=== PATIENT | male | born 1950 | race Caucasian/White ===

== ENCOUNTER → 2016-03-18 | Outpatient (CLI) | payer OTHER | LOC: FCPNEURO 21:30 | PROVIDERS: ATTEND Psychiatry & Neurology Sleep Medicine | DX: G47.33 Obstructive sleep apnea (adult) (pediatric) (principal) ==

== ENCOUNTER → 2016-08-14 | Outpatient (CLI) | payer OTHER | LOC: FIMAGING 14:00 | PROVIDERS: ATTEND Internal Medicine | DX: N18.2 Chronic kidney disease, stage 2 (mild) (principal) ==

== ENCOUNTER → 2016-08-20 | Outpatient (CLI) | payer OTHER | LOC: FIMAGING 12:30 | PROVIDERS: ATTEND Internal Medicine Cardiovascular Disease | DX: Z09 Encounter for follow-up examination after completed treatment for conditions other than malignant neoplasm (principal) ==

== ENCOUNTER → 2017-06-06 | Outpatient (CLI) | payer OTHER ==
[~2017-06-06] MED LIST: IOPAMIDOL (ISOVUE-370) 150 ML BTL IV ONE
== END ==
LOC: CIMAGING 09:41
PROVIDERS: ATTEND Internal Medicine Cardiovascular Disease
DX: I72.4 Aneurysm of artery of lower extremity (principal); N28.1 Cyst of kidney, acquired; K57.90 Diverticulosis of intestine, part unspecified, without perforation or abscess without bleeding
CPT/HCPCS: 75635; Q9967

== ENCOUNTER 2017-07-05 00:53 | Emergency (ER) | payer OTHER ==
--- NOTE | 2017-07-05 01:05 | EDPHY ---
H & P Stated Complaint: bilat feet swelling Time Seen by Provider: 07/05/17 01:05 HPI/ROS: HPI CHIEF COMPLAINT: Bilateral feet swelling. HISTORY OF PRESENT ILLNESS: This is a 66-year-old male, presents emergency room with bilateral lower extremity swelling. States this been going on since Friday progressively getting worse. Patient denies any chest pain or shortness of breath. He states that he just flew to [place] and back. He states he did extensive walking while there. He has never had significant swelling like this. He has never been on a diuretic. He denies a history of heart failure. Denies a history of renal failure. Denies any chest pain or shortness of breath. Main complaint is bilateral lower extremity swelling. Past Medical History: Hypertension, obstructive sleep apnea Past Surgical History: Lumbar diskectomy, femoral stents, knee replacement Social History: Denies daily use of drugs alcohol tobacco. Family History: Noncontributory ROS REVIEW OF SYSTEMS: A comprehensive 10 point review of systems is otherwise negative aside from elements mentioned in the history of present illness. Exam Constitutional triage nursing summary reviewed, vital signs reviewed, awake/ alert. Eyes normal conjunctivae and sclera, EOMI, PERRLA. HENT normal inspection, atraumatic, moist mucus membranes, no epistaxis, neck supple/ no meningismus, no raccoon eyes. Respiratory clear to auscultation bilaterally, normal breath sounds, no respiratory distress, no wheezing. Cardiovascular rate normal, regular rhythm, no murmur, no edema, distal pulses normal. Gastrointestinal soft, non-tender, no rebound, no guarding, normal bowel sounds, no distension, no pulsatile mass. Genitourinary no CVA tenderness. Musculoskeletal bilateral lower extremity swelling pitting edema up to the knees bilaterally. 2+. No signs of cellulitis. No significant calf pain or calf tenderness. Good distal pulses, good cap refill, warm extremities. no midline vertebral tenderness, full range of motion, no calf swelling, no tenderness of extremities, no meningismus, good pulses, neurovascularly intact. Skin pink, warm, & dry, no rash, skin atraumatic. Neurologic awake, alert and oriented x 3, AAOx3, moves all 4 extremities equally, motor intact, sensory intact, CN II-XII intact, normal cerebellar, normal vision, normal speech. Psychiatric normal mood/affect. Heme/Lymph/Immune no lymphadenopathy. Differential Diagnosis: Includes but is not limited to in a particular order peripheral edema, DVTs, CHF, renal failure Medical Decision Making: Plan for this patient check ultrasound Doppler both lower extremities, chest x-ray, EKG, basic blood work, check kidney function, troponin, BNP. And re-evaluate. Clinically most likely this patient has peripheral edema from extensive walking in [place] and taking flights. Re-evaluation: Ultrasound bilateral lower extremities negative for DVT. EKG interpretation by me on record in [facility] system. Impression time of EKG 1:31 a.m., sinus rhythm rate of 62 Q-waves noted V1 V2. Otherwise no ST elevation no ST depression no significant T-wave abnormalities. No signs of cardiac arrhythmia. Blood work is reviewed. No elevated BNP. Kidney function normal. Doppler ultrasounds of the bilateral lower extremity shows no evidence of DVT. Clinically on exam patient has peripheral edema. I do recommend he keep his legs elevated. Compression stockings. Close follow-up with his primary care doctor. Return precautions discussed with him he understands return emergency room if develops worsening symptoms includes increasing swelling, pain, chest pain, shortness of breath. He has no chest pain or shortness of breath. There is no evidence of heart failure on exam. Chest x-ray reveals no significant pulmonary edema or pleural effusions. Patient has no PND or dyspnea on exertion. Most likely has peripheral edema due to extensive walking in [place] and flights. 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 He understands. Source: Patient - Personal History Current Tetanus/Diphtheria Vaccine: Yes Current Tetanus Diphtheria and Acellular Pertussis (TDAP): Yes - Medical/Surgical History Hx Asthma: No Hx Chronic Respiratory Disease: No Hx Diabetes: No Hx Cardiac Disease: Yes Hx Renal Disease: No Hx Cirrhosis: No Hx Alcoholism: No Hx HIV/AIDS: No Hx Splenectomy or Spleen Trauma: No Other PMH: Lumbar surgery, HTN, detached retina, left knee replacement, femoral stents. - Social History Smoking Status: Never smoked Constitutional: Initial Vital Signs Temperature (C) 36.9 C 07/05/17 00:55 Heart Rate 69 07/05/17 00:55 Respiratory Rate 16 07/05/17 00:55 Blood Pressure 161/80 H 07/05/17 00:55 O2 Sat (%) 96 07/05/17 00:55 O2 Delivery Mode Room Air Allergies/Adverse Reactions: No Known Allergies Allergy (Verified 07/05/17 00:59) Home Medications: Medication Instructions Recorded Aspirin 01/17/16 Blood Pressure Med 01/17/16 Aspirin 07/05/17 Lisinopril 07/05/17 Metoprolol-Hctz 100-50 mg Tab 07/05/17 Medical Decision Making - Data Points Laboratory Results: Laboratory Results 07/05/17 01:35 07/05/17 01:35 07/05/17 07/05/17 07/05/17 01:35 01:35 01:35 WBC 6.34 10^3/uL 10^3/uL (3.80-9.50) RBC 4.54 10^6/uL 10^6/uL (4.40-6.38) Hgb 13.4 g/dL L g/dL (13.7-17.5) Hct 39.8 % L % (40.0-51.0) MCV 87.7 fL fL (81.5-99.8) MCH 29.5 pg pg (27.9-34.1) MCHC 33.7 g/dL g/dL (32.4-36.7) RDW 14.8 % % (11.5-15.2) Plt Count 210 10^3/uL 10^3/uL (150-400) MPV 9.0 fL fL (8.7-11.7) Neut % (Auto) 51.8 % % (39.3-74.2) Lymph % (Auto) 27.8 % % (15.0-45.0) [place] % (Auto) 13.4 % H % (4.5-13.0) Eos % (Auto) 6.3 % % (0.6-7.6) Baso % (Auto) 0.5 % % (0.3-1.7) Nucleat RBC Rel Count 0.0 % % (0.0-0.2) Absolute Neuts (auto) 3.29 10^3/uL 10^3/uL (1.70-6.50) Absolute Lymphs (auto) 1.76 10^3/uL 10^3/uL (1.00-3.00) Absolute Monos (auto) 0.85 10^3/uL H 10^3/uL (0.30-0.80) Absolute Eos (auto) 0.40 10^3/uL 10^3/uL (0.03-0.40) Absolute Basos (auto) 0.03 10^3/uL 10^3/uL (0.02-0.10) Absolute Nucleated RBC 0.00 10^3/uL 10^3/uL (0-0.01) Immature Gran % 0.2 % % (0.0-1.1) Immature Gran # 0.01 10^3/uL 10^3/uL (0.00-0.10) PT 14.1 SEC SEC (12.0-15.0) INR 1.07 (0.83-1.16) APTT 28.2 SEC SEC (23.0-38.0) Sodium 146 mEq/L H mEq/L (135-145) Potassium 4.0 mEq/L mEq/L (3.5-5.2) Chloride 107 mEq/L mEq/L (97-110) Carbon Dioxide 24 mEq/l mEq/l (22-31) Anion Gap 15 mEq/L mEq/L (8-16) BUN 20 mg/dL mg/dL (7-23) Creatinine 1.1 mg/dL mg/dL (0.7-1.3) Estimated GFR > 60 Glucose 115 mg/dL H mg/dL (70-100) Calcium 9.1 mg/dL mg/dL (8.5-10.4) Magnesium 1.8 mg/dL mg/dL (1.6-2.3) Total Bilirubin 0.6 mg/dL mg/dL (0.1-1.4) Conjugated Bilirubin 0.4 mg/dL mg/dL (0.0-0.5) Unconjugated Bilirubin 0.2 mg/dL mg/dL (0.0-1.1) AST 18 IU/L IU/L (17-59) ALT 35 IU/L IU/L (21-72) Alkaline Phosphatase 55 IU/L IU/L (38-126) Creatine Kinase 183 IU/L IU/L (0-224) CK-MB (CK-2) Fraction 3.46 ng/mL ng/mL (0.00-4.55) Troponin I < 0.012 ng/mL ng/mL (0.000-0.034) NT-Pro-B Natriuret Pep 71 pg/mL pg/mL (0-125) Total Protein 6.9 g/dL g/dL (6.3-8.2) Albumin 3.8 g/dL g/dL (3.5-5.0) Departure - Departure Disposition: Home, Routine, Self-Care Clinical Impression: Peripheral edema Condition: Good Instructions: Edema (ED) Additional Instructions: 1. Recommend you keep her legs elevated as much as possible over the next week. 2. Recommend get compression stockings. 3. I would follow up closely with her primary care doctor. 4. Your ultrasound today did not show any clots in her legs. Your kidney function is normal. And there is no evidence of heart failure on her blood work or exam. Referrals: Jose Guerrero MD [Primary Care Provider] - As per Instructions
--- NOTE | 2017-07-05 01:33 | CPEKG ---
Heart Rate: 62 RR Interval: 968 QRSD Interval: 88 QT Interval: 404 QTC Interval: 411 QRS [place]: 33 T Wave [place]: 49 EKG Severity - ABNORMAL ECG - EKG Impression: ACCELERATED JUNCTIONAL ESCAPE RHYTHM Electronically Signed By: Manav Horta 05-Jul-2017 06:44:13
[2017-07-05 01:48] LABS: PLATELET COUNT 210 10^3/uL (150-400)
[2017-07-05 01:55] LABS: INR 1.07 (0.83-1.16); PROTIME(PATIENT) 14.1 SEC (12.0-15.0)
[2017-07-05 02:11] LABS: CREATINE KINASE 183 IU/L (0-224)
[2017-07-05 03:22] VITALS: BP 111/62
== END 2017-07-05 03:21 | disposition home or self-care (01) ==
DX: R60.0 Localized edema (principal); I10 Essential (primary) hypertension; Z79.82 Long term (current) use of aspirin

== ENCOUNTER 2017-08-05 14:03 | Observation (INO) | payer OTHER ==
[2017-08-05] MEDS ORDERED: ERTAPENEM 1 GM VIAL ONE (18:39)
[2017-08-05] MEDS ORDERED: REMIFENTANIL HCL 1 MG VIAL ONE (20:08)
[2017-08-05] MEDS ORDERED: fentaNYL 100 MCG/2 ML INJ ONE (20:08)
[2017-08-05] MEDS ORDERED: PROPOFOL/EMULSION 500 MG/50 ML BOTTLE IV ONE (20:09)
[2017-08-05] MEDS ORDERED: MIDAZOLAM 2 MG/2 ML VIAL ONE (20:10)
[2017-08-05] MEDS ORDERED: SUCCINYLCHOLINE CHLORIDE 200 MG/10 ML SYR IVP ONE (20:14)
[2017-08-05] MEDS ORDERED: LIDOCAINE 2% 5 ML SDV ONE (20:14)
[2017-08-05] MEDS ORDERED: ONDANSETRON 4 MG/2 ML VIAL ONE (20:14)
[2017-08-05] MEDS ORDERED: DEXAMETHASONE 4 MG/ML VIAL ONE (20:14)
[2017-08-05] MEDS ORDERED: ROCURONIUM 50 MG/5 ML VIAL ONE (20:14)
[2017-08-05] MEDS ORDERED: KETOROLAC 30 MG/1 ML SDV ONE (20:14)
[2017-08-05] MEDS ORDERED: BUPIVACAINE/EPI 0.5% 30 ML SDV ONE (20:19)
[2017-08-05] MEDS ORDERED: SUGAMMADEX SODIUM 200 MG/2 ML VIAL IVP ONE (20:57)
[2017-08-05] MEDS ORDERED: ONDANSETRON DISINTEGRATING 4 MG TAB PO PRN (21:00)
[2017-08-05] MEDS ORDERED: traMADol 50 MG TAB PO PRN (21:00)
--- NOTE | 2017-08-05 22:32 | GHP ---
[f rep st] HISTORY AND PHYSICAL CHIEF COMPLAINT: Acute appendicitis. HISTORY OF PRESENT ILLNESS: The patient is a 66-year-old man, who developed abdominal pain approximately 11 p.m. last night. He did not sleep very well. Throughout the day, it became worse. He tried to eat Cheerios with milk around 1 p.m. and started having shaking chills. He then presented to the ER. He had a CT scan, which showed acute appendicitis. PAST MEDICAL HISTORY: Hypertension, also watching an aneurysm in his groin. PAST SURGICAL HISTORY: Stents in his aorta. ALLERGIES: No known drug allergies. 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 FAMILY HISTORY: Noncontributory. REVIEW OF SYSTEMS: A 10-point review of systems negative except per HPI. PHYSICAL EXAM: VITALS: Reviewed. GENERAL: Pleasant, well-nourished, well- groomed man lying on gurney. Family at bedside. HEENT: Normocephalic. No gross hearing deficits. Mucous membranes moist. Pupils equal and round. No scleral icterus. LUNGS: Clear to auscultation bilaterally. No increased work of breathing. CARDIAC: Regular rate. No peripheral edema. ABDOMEN: Bowel sounds present. Soft. He is tender in the right lower quadrant. Negative Rovsing sign. SKIN: Warm and dry. MUSCULOSKELETAL: Normal gait. Normal nails. Slight clubbing of the nails. NEURO: Grossly intact. RESULTS REVIEWED: I reviewed the results in down time. IMPRESSION AND PLAN: Patient with acute appendicitis. I will take him to the operating room for a laparoscopic appendectomy. The risks and benefits, including, but not limited to, stroke, heart attack, , blood clots, infection, bleeding, damage to surrounding structures were discussed. He had his questions answered to his satisfaction, signed the informed consent. He received Invanz in the emergency room. /[id number]/MODL MTDD
--- NOTE | 2017-08-05 22:32 | EDV ---
[f rep st] EMERGENCY DEPARTMENT REPORT CHIEF COMPLAINT: Abdominal pain. HISTORY OF PRESENT ILLNESS: The patient complains of right lower quadrant pain that began at 11 p.m. last night. It continues to hurt and hurts to walk and push on the area. He has had decreased appetite. He had shaking and chills this afternoon. He thought he might be constipated, so he took a laxative and did have a small, but relatively normal bowel movement this afternoon. He has had no nausea or vomiting. He has had no urinary symptoms. He does complain of being slightly short of breath. COMPLETE REVIEW OF SYSTEMS: Otherwise negative. PAST MEDICAL HISTORY: Significant for abdominal aortic aneurysm with iliac stents, brain aneurysm, an untreated iliac artery aneurysm, hypertension, back surgery. SOCIAL HISTORY: Nonsmoker. No alcohol. The patient is . ADULT PHYSICAL EXAM: GENERAL: Alert, pleasant well-developed male. VITAL SIGNS: Temperature 37.9. HEENT: Normal. NECK: Supple. HEART: Regular rate and rhythm without murmur or gallop. LUNGS: Clear. ABDOMEN: Soft. Tenderness at McBurney's point in the right lower quadrant. No masses. No organomegaly. EXTREMITIES: Normal. NEUROPSYCH: Normal. ED COURSE: IV normal saline. CBC shows an 8.7 white blood cell count, hematocrit 41.8. Chemistry is normal, and urinalysis shows 1+ blood. Chest x- ray because of shortness of breath, interpreted by me as normal. CT abdomen and pelvis with IV contrast reviewed by me and discussed with Dr. Morrissey shows appendicitis without evidence for rupture. Reevaluation of the patient, the patient is stable. The patient, his and I discussed imaging study results, treatment plan including recommendation for surgery. They expressed understanding and agreement. I consulted and discussed the case with Dr. Awad for surgery, who will see the patient and will take the patient to the OR. Patient is given IV Invanz in the emergency department. MEDICAL DECISION MAKING: I considered urinary tract infection, pyelonephritis, pneumonia, appendicitis, diverticulitis. CLINICAL IMPRESSION: Acute appendicitis. PLAN: Admission and OR. /[id number]/MODL and [id number]/MODL [facility]
--- NOTE | 2017-08-05 22:52 | GOP ---
[f rep st] OPERATIVE REPORT DATE OF OPERATION: 08/05/2017 SURGEON: Bonita Awad MD ANESTHESIA: General. ANESTHESIOLOGIST: Edward Rick DO PREOPERATIVE DIAGNOSIS: Acute appendicitis. POSTOPERATIVE DIAGNOSIS: Acute appendicitis. PROCEDURE PERFORMED: Laparoscopic appendectomy. FINDINGS: Appendicitis. SPECIMENS: Appendix. ESTIMATED BLOOD LOSS: 10 cc. INDICATIONS: The patient is a 66-year-old man who developed abdominal pain. He had imaging and labs consistent with acute appendicitis. DESCRIPTION OF PROCEDURE: The patient was brought into the operating room, placed supine on the table, and general anesthesia was administered. His abdomen was prepped and draped in the usual sterile fashion. I infiltrated all sites with 0.5% Marcaine prior to making incisions. I made an incision at his umbilicus. I elevated it, I inserted the long Veress needle, and it passed the hanging drop test. His abdomen insufflated easily to a pressure of 15 mmHg. I placed a 5 mm trocar with a camera at this site. There were no injuries from Veress needle placement. Under direct vision, I placed a 5 mm suprapubic trocar and a 10 mm trocar in the left lower quadrant. I elevated his appendix. I divided the mesoappendix with a LigaSure, transected the base with an Endo ELVIRA 45 white load. The tip of the appendix was very inflamed. The base was soft. I placed it in an EndoCatch bag and retrieved it via the 10 mm trocar. Hemostasis was achieved. I removed the trocars under direct vision, allowed the abdomen to desufflate. I closed the fascia with 0 Vicryl, I closed skin with 4-0 Monocryl. Dermabond applied. He was awakened in the operating room, extubated, and transferred to PACU in stable condition. /[id number]/MODL MTDD
[2017-08-05] MEDS ORDERED: KETOROLAC 15 MG/1 ML SDV ONE (23:48)
[2017-08-05] MEDS ORDERED: ACETAMINOPHEN 325 MG TAB ONE (23:49)
[2017-08-06] MEDS: ACETAMINOPHEN 325 MG TAB PO SCH ×2 (05:45→09:25)
[2017-08-06] MEDS: KETOROLAC 15 MG/1 ML SDV IVP SCH ×2 (05:45→09:29)
--- NOTE | 2017-08-06 11:02 | CPEKG ---
Heart Rate: 46 RR Interval: 1304 QRSD Interval: 96 QT Interval: 448 QTC Interval: 392 QRS [place]: 23 T Wave [place]: 46 EKG Severity - ABNORMAL ECG - EKG Impression: SINUS RHYTHM WITH FIRST DEGREE AVB Electronically Signed By: Thong Max 06-Aug-2017 11:43:29
--- NOTE | 2017-08-06 11:07 | ASMTCMCOM ---
CM Note CM Note Notes: Patient admitted with acute appendicitis. He is POD #1 laparoscopic appy. 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 I do not anticipate any discharge needs. Case Management available if needs arise. Date Signed: 08/06/2017 11:06 AM Electronically Signed By:Heidi Flynn RN
[2017-08-06 11:17] VITALS: BP 111/62
--- NOTE | 2017-08-06 11:19 | SOAPPROG ---
SOAP Progress Note Assessment/Plan: Assessment: POD#1 s/p laparoscopic appendectomy for acute appendicitis Neuro: up and walking to bathroom, pain meds if needed Respiratory: On 2 L of oxygen, wean oxygen Cardio: Bradycardic, rate of 38 last night, appreciate cardiology consult DVT prophylaxis: SCD's Dispo: Awaiting cardiology consult and O2 check on room air before discharge S: no pain, feels good, no nausea, vomiting, able to keep down food O: laying in bed CTAB Bradycardic at 45 bpm, no murmurs heard 97% oxygen sat on 2L NC Abdomen: soft, nontender, BS present, incisions dry, clean, and intact Extremities: no swelling, pulses intact 08/06/17 11:18 Objective: Vital Signs Temp Pulse Resp BP Pulse Ox 36.6 C 44 L 14 111/62 94 08/06/17 11:16 08/06/17 11:16 08/06/17 11:16 08/06/17 11:16 08/06/17 11:16 08/05/17 08/06/17 08/07/17 05:59 05:59 05:59 Intake Total 400 Balance 400 ICD10 Worksheet Patient Problems: Problems Problem Status Onset Acute appendicitis Acute - ICD10 Problem Qualifiers (1) Acute appendicitis
--- NOTE | 2017-08-06 11:59 | GCON ---
[f rep st] CONSULTATION CARDIOLOGY CONSULTATION DATE OF CONSULTATION: 08/06/2017 REFERRING PHYSICIAN: Dr. Awad PRIMARY COMMUNITY RELATIONS SPECIALIST: Corey Barr MD. CHIEF COMPLAINT: Bradycardia. HISTORY OF PRESENT ILLNESS: We are asked by Dr. Awad to visit with the patient. The patient is a garcía johnson 66-year-old male with a history of hypertension, treated sleep apnea, and infrarenal abdomina l aortic aneurysm, for which he had endovascular repair. He has residual left common femoral arteria l aneurysm which has been stable on serial imaging studies. He presented to the emergency department yesterday evening with abdominal pain and anorexia. He was found to have acute appendicitis and was taken urgently to the operating room by Dr. Awad. He had a n uncomplicated appendectomy. Overnight and early this morning, nursing staff reported heart rates i n the 30s to 40s. The patient was paced on telemetry. Upon my evaluation, he reports feeling quite well. He has actually eaten today. He is passing gas. He has minimal pain related to his surgery. He denies angina, dyspnea. No presyncope. No syncope. I have reviewed his [facility] record. He was seen by Dr. Barr in May 2017. At that time, his amlodipine had been discontinued due to lower extremity edema, and his lisinopril had been increased. He had been taking metoprolol 25 mg once daily. His last dose of metoprolol was at 8 a.m. on August 05. He also recently had an ambulatory monitor through our office, which shows sinus rhythm with a n average heart of 58 beats per minute, grecia of 39 and max of 118. Less than 1% PVC burden. No sym ptoms during that period. REVIEW OF SYSTEMS: A full 10-point review of systems was performed and is otherwise negative except that which is outlined in the History of Present Illness. Telemetry: Sinus rhythm and sinus bradycardia in the 50s. ALLERGIES: Amlodipine causes swelling. PAST MEDICAL HISTORY: 1. Hypertension. 2. Infrarenal abdominal aortic aneurysm, treated with endovascular repair with residual and stable l eft common femoral artery aneurysm distally. 3. Sleep apnea, treated with CPAP. 4. Small cerebral aneurysm that has not been intervened upon and is followed by Dr. Mc [facility]. 5. Now status post appendectomy. OUTPATIENT MEDICATIONS: Include lisinopril 10 mg once daily, metoprolol succinate 25 mg once daily, and aspirin 81 mg daily. SOCIAL HISTORY: The patient is , and his is at bedside. 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 FAMILY HISTORY: Not applicable to the current case. PHYSICAL EXAMINATION: VITAL SIGNS: Blood pressure 99/59. Heart rate has been documented between 41 and 50. Respiratory rate is 14. Oxygen saturation 97% on room air. He is afebrile. GENERAL: Wel l-appearing older male, in no acute distress. HEENT: Sclerae are clear and free of jaundice. Mucou s membranes are moist. Normocephalic, atraumatic. CARDIOVASCULAR: JVP is less than 10. Regular ra te and rhythm without murmur, rub, or gallop. LUNGS: Clear to auscultation bilaterally without whee zes, rhonchi, or rales. ABDOMEN: Soft and nontender, with minimal distention. Decreased but presen t bowel sounds. No significant tenderness. Small laparoscopy site. EXTREMITIES: Warm, well perfus ed, without cyanosis, clubbing, or edema. NEURO: Alert and oriented x3, without gross focal neurolo gic deficits. Appropriate mood and affect. LABORATORY: EKG, reviewed by me: Sinus bradycardia at 46 beats per minute with first-degree AV bloc k. No ischemic changes. Labs are pending. Echocardiogram at [facility] in 2017 was reportedly normal based on Dr. Barr's recent not e. Nuclear stress test in 2017 at the [facility] was reported normal based on Dr. Barr's recent note . ASSESSMENT AND PLAN: A 66-year-old male with hypertension and peripheral vascular disease, now statu s post urgent appendectomy. He has sinus bradycardia on the monitor without evidence of high degree atrioventricular block. He h as a first-degree atrioventricular block. He is asymptomatic. I think this is likely a result of re sidual beta hilaria effect with a tendency to bradycardia. 1. Bradycardia: He is asymptomatic. Would hold his metoprolol and have him follow up in the office . He may need increased lisinopril or additional antihypertensives for blood pressure management, al though his blood pressure here is quite good, likely related to prolonged n.p.o. status yesterday. N o need for pacemaker. No need to repeat echocardiogram or stress test at this time as he recently motta d normal studies within a year and is currently asymptomatic. Will check a TSH, complete metabolic p jessica, and magnesium as well as a CBC to make sure there is no metabolic abnormality that could be con tributing to his bradycardia. 2. Hypertension: Currently has not received any medical therapy. Would actually hold off on his li sinopril and metoprolol until he has been seen by Dr. Barr or in our office. He should continue to c heck blood pressure at home and call our office with updates. 3. Peripheral vascular disease: He recently had surveillance imaging of his abdominal aortic endogr aft and common femoral artery aneurysm, and this is stable. 4. Sleep apnea: He uses continuous positive airway pressure. 5. Cerebral aneurysm: He has no headache today. This is followed by Neurosurgery. If there is nothing significantly abnormal on his labs and he continues to have heart rates above 40 without symptoms, he may be discharged later today with close clinical followup. This was discussed with Dr. Awad. /[id number]/MODL
[2017-08-06] MEDS ORDERED: KETOROLAC 15 MG/1 ML SDV IVP SCH (12:00)
[2017-08-06] MEDS ORDERED: ACETAMINOPHEN 325 MG TAB PO SCH (12:00)
--- NOTE | 2017-08-06 14:26 | GDS ---
[f rep st] DISCHARGE SUMMARY ADMITTING DIAGNOSIS: Acute appendicitis. SECONDARY DIAGNOSIS: Hypertension. HISTORY OF PRESENT ILLNESS: This is a 66-year-old male who developed abdominal pain approximately at 11 p.m. on 08/05/2017. At that time, he was not sleeping well due to the pain. It became worse aft er the initial onset. He states he was unable to drink or eat anything and started having chills. James friedman then decided to present to the ER. A CT done at that time showed acute appendicitis. The patient was admitted for surgical intervention, pain management and close observation. HOSPITAL COURSE: The patient was taken to the operating room on 08/05/2017 by myself, Bonita Awad MD, for a laparoscopic appendectomy. There were no immediate complications following the procedure . The patient has had little to no pain throughout this day. Vital signs have been normal. DISCHARGE: Patient will be discharged to his home today in stable condition. I appreciate Cardiolog y consulting on the patient prior to discharge for bradycardia. DISCHARGE INSTRUCTIONS: The patient has been discharge metoprolol. He will follow up madeline goddard Dr. , as an outpatient. The following postoperative instructions have been discussed madeline goddard the patient. He is not to drive while in pain or while taking prescription pain medication. Howev er, we have not prescribed anything for him as he has not needed anything. He can resume normal acti vity except for no heavy lifting, pushing or pulling greater than 15-pounds for the next 2-weeks. Di et as tolerated. He has been instructed to start out light and add on foods throughout the next week . Incisional care, he has glue in his incisions and is able to shower, avoid hot tubs, baths or swim [place] pools for the next week. He will follow up with us in about 10 to 14 days for postoperative zak ck. He will call our office in the meantime if he develops fevers, chills, worsening pain, difficult y with urination, redness or purulent drainage around the incisions. All his questions were answered to his satisfaction. /[id number]/MODL
== END 2017-08-06 16:10 | disposition home or self-care (01) ==
LOC: F3E 22:02
PROVIDERS: ADMIT Surgery; ATTEND Surgery
PROC: 0DTJ4ZZ Resection of Appendix, Percutaneous Endoscopic Approach (ICD-10-PCS; principal; 2017-08-05 21:45)
DX: K35.80 Unspecified acute appendicitis (principal); I10 Essential (primary) hypertension; Z95.5 Presence of coronary angioplasty implant and graft
CPT/HCPCS: 44970; 71045; 74177; 88304; 93005; 96374; 99285; G0378; J0330; J1100; J1335; J1885; J2250; J2405; J2704; J3010

== ENCOUNTER → 2018-08-05 | Outpatient (CLI) | payer OTHER | LOC: BMCIMAGING 15:42 ==